=== PATIENT | female | born 1990 | race Caucasian/White ===

== ENCOUNTER → 2021-10-06 11:05 | Outpatient (BNVA) | payer SELFPAY | PROVIDERS: PCP Student in an Organized Health Care Education/Training Program; Visit Provider Internal Medicine | DX: Z02.79 Encounter for issue of other medical certificate (principal) ==

== ENCOUNTER 2022-03-14 04:03 | Emergency (ER) | payer MEDICAID, SELFPAY ==
[2022-03-14 04:17] VITALS: BP 113/79; PULSE 88; RESP 18; TEMP 36.7; O2SAT 99; BMI 26.6
== END 2022-03-14 10:47 | disposition left against medical advice (07) ==
LOC: HO.ED 10:36
PROVIDERS: Emergency Provider Emergency Medicine
DX: R10.9 Unspecified abdominal pain (principal)
CPT/HCPCS: 99281

== ENCOUNTER 2023-07-12 18:05 | Outpatient (REF) | payer MEDICAID, SELFPAY ==
[2023-07-12 19:20] LABS: Influenza A PCR NEGATIVE (Negative); Influenza B PCR NEGATIVE (Negative); Resp Syncy Virus RNA Qual PCR NEGATIVE (Negative); SARS COV2 PCR INHOUSE NEGATIVE (Negative)
== END 2023-07-12 18:06 | disposition home or self-care (01) ==
LOC: HO.HHCLNP 18:05
PROVIDERS: Visit Provider Emergency Medicine
DX: Z11.52 Encounter for screening for COVID-19 (principal); R68.89 Other general symptoms and signs
CPT/HCPCS: 0241U

== ENCOUNTER 2023-09-08 09:34 | Outpatient (REF) | payer MEDICAID, SELFPAY ==
--- NOTE | ~2023-09-08 | XR_ITS ---
EXAMINATION: XR SHOULDER, LEFT CLINICAL INFORMATION: Left shoulder pain COMPARISON: None available. TECHNIQUE: AP external rotation, Grashey, scapular Y, and axillary views of the left shoulder. FINDINGS: The bones and soft tissues are normal. No fracture. Glenohumeral and acromioclavicular alignment is anatomic with normal joint space. No abnormal soft tissue calcifications. XR/XR shoulder LT min 2V IMPRESSION: Normal left shoulder.
== END 2023-09-08 09:35 | disposition home or self-care (01) ==
LOC: HO.HHCX 09:34
PROVIDERS: Visit Provider Emergency Medicine
DX: M25.512 Pain in left shoulder (principal)
CPT/HCPCS: 73030